=== PATIENT | female | born 1930 | race Caucasian/White ===

== ENCOUNTER → 2017-06-26 | Outpatient (CLI) | payer OTHER ==
[~2017-06-26] MED LIST: BENICAR40 MG PO; DEXILANT60 MG; HCTZ; LEVOTHYROXIN0.125 M1; LORTAB 5 MG/5001 TA1 PO; LOSARTAN-HCTZ1 EAC2; PREVACID DIS; SYNTHROID PO; ZOFRAN4 MG PO
== END ==
LOC: RAD 11:38
DX: Z12.31 Encounter for screening mammogram for malignant neoplasm of breast (principal)

== ENCOUNTER → 2018-07-14 | Outpatient (CLI) | payer OTHER | LOC: RAD 03:00 | DX: Z12.31 Encounter for screening mammogram for malignant neoplasm of breast (principal); I10 Essential (primary) hypertension; K21.9 Gastro-esophageal reflux disease without esophagitis ==